=== PATIENT | male | born 1985 | race African-American/Black ===

== ENCOUNTER 2020-12-11 23:34 | Emergency (ER) | payer OTHER ==
[~2020-12-11] VITALS: Ht 182.9 cm; Wt 83.9 kg
[2020-12-12 00:42] LABS: *BILIRUBIN,URIN 1+ (NEGATIVE); *BLOOD, URINE 3+ (NEGATIVE); *CLARITY,URINE CLOUDY (CLEAR); *KETONES,URINE TRACE (NEGATIVE); LEUKOCYTE ESTERASE ,URINE NEGATIVE (NEGATIVE); NITRITE, URINE NEGATIVE (NEGATIVE); UGLUCOSE NEGATIVE (NEGATIVE)
[2020-12-12 00:46] LABS: *COLOR,URINE BROWN (YELLOW)
[2020-12-12 00:52] LABS: BACTERIA,URINE NONE SEEN /HPF (NONE SEEN); RBC,URINE TNTC /HPF (0-3); SQUAMOUS EPITHELIAL CELL,UR NONE SEEN /HPF (NONE SEEN); WBC,URINE 0-3 /HPF (0-3)
--- NOTE | 2020-12-12 01:14 | NUR ---
Patient resting upright on bed, no acute distress noted.
[2020-12-12] MEDS ORDERED: OXYC-128 PO (02:05)
[2020-12-12] MEDS ORDERED: PROC10TA29 PO (02:05)
[2020-12-12 02:20] VITALS: BP 126/72
--- NOTE | 2020-12-12 02:20 | NUR ---
Patient discharged to home in stable condition. Written and verbal after care instructions given. Patient verbalizes understanding of instructions. Stressed follow up or return to ER for worsening s/s. Patient ambulates with steady gait, V/S stable, received paper Rx, received copies of CT/Labs, and left with all personal belongings.
== END 2020-12-12 02:20 | disposition home or self-care (01) ==
LOC: ER 23:44
DX: E83.59 Other disorders of calcium metabolism (principal); N29 Other disorders of kidney and ureter in diseases classified elsewhere; Z84.1 Family history of disorders of kidney and ureter; Z87.440 Personal history of urinary (tract) infections
CPT/HCPCS: A4663